=== PATIENT | female | born 1975 | race Caucasian/White ===

== ENCOUNTER 2016-12-31 08:53 | Inpatient (IN) ==
--- NOTE | 2016-12-31 09:39 | Emergency Department Note ---
Kaushik Chahal Hilary, am scribing for, and in the presence of, Jaime Gayle MD 09: 36. Nalini Chahal James D, MD, personally performed the services described in this documentation, ascribed by Molly Faulkner in my presence, and it is both accurate and complete 938 . Arrival - Arrival Chief Complaint: Abdominal / Flank Pain Stated Complaint: pressure,swollen abd ED Nursing Triage Note: c/o abd swelling over the last 6 month but worse in the last few weeks. Mode of Arrival: Ambulatory Limitations: No Limitations Source: Patient, RN Notes Reviewed Time Seen by Provider: 12/31/16 09:21 - History of Present Illness HPI Narrative: Pt is a 41 y/o white female presenting to the ED with c/o abdominal swelling which onset a few months ago. Pt states that her abdomen has been swelling for the past few months and it has gradually gotten worse. Pt confirms SOB, intermittent dark urine, a BM yesterday and worsening pressure but denies pain upon touching. No other complaints or problems stated in the ED. Onset (ago): month(s) Consistency: constant Severity: moderate Severity scale (1-10): 2 Quality: other (pressure) Date of Last Menstrual Period: 4 days ago Allergies/Adverse Reactions: Allergies Allergy/AdvReac Type Severity Reaction Status Date / Time Penicillins Allergy ANAPHYLAXIS Verified 08/23/16 13:11 Home Medications: Home Medications Medication Instructions Recorded Confirmed Type Ciprofloxacin Tab [Cipro Tab] 500 mg PO Q12HR #20 tablet 08/23/16 Rx Clorazepate [Tranxene] 7.5 mg PO DAILY 08/23/16 08/23/16 History predniSONE TAB [PredniSONE] 20 mg PO DAILY #15 tablet 08/23/16 Rx Review of System - Review of System 12 point system: reviewed and no additional remarkable complaints except as stated - Review of System Constitutional: Absent: fever Respiratory: Present: respiratory distress (SOB) Gastrointestinal: Present: abdominal pain (abdominal pressure and swelling ). Absent: constipation Genitourinary female: Present: other (intermittent dark urine) Medical,Surgical,& Family Hx - Medical History Psychological: History of: Anxiety Disorders - Social History Smoking Status: Current every day smoker Frequency of Alcohol Use: None Type of Drug Use: None Exam Physical Examination: GENERAL: This is a well-nourished, well-developed female in no apparent distress. VITAL SIGNS: Temperature: 97.9 Pulse: 118 Respiratory: 18 Blood Pressure: 159 /100 O2Sat: 99 HEENT: Head is normocephalic and atraumatic. Pupils are equally round and reactive to light. Extraocular movement are intact. Oropharynx is benign with moist mucous membranes. NECK: Neck is soft and supple without tenderness. There are no masses. There is no lymphadenopathy. LUNGS: Lungs are clear to auscultation bilaterally. Chest rises symmetrically. There is no chest wall tenderness. CV: Heart is regular rate and rhythm without murmurs, rubs, or gallops. ABDOMEN: Abdomen is distended and taut, non-tender to palpation. There are no abnormal masses palpated. There is no organomegaly. Bowel sounds are hypoactive. SKIN: Skin is warm and dry. No rash. EXTREMITIES: Patient has full range of motion without tenderness. There is no pedal edema. NEUROLOGIC: Awake, alert, and oriented x4. Cranial nerves II through XII are grossly intact. There are no motorsensory deficits. PSYCHIATRIC: Normal affect. Normal mood. Vital Signs: Vital Signs Temperature 97.9 F 12/31/16 08:55 Pulse Rate 96 H 12/31/16 11:15 Respiratory Rate 18 12/31/16 11:15 Blood Pressure 137/95 12/31/16 11:15 O2 Sat by Pulse Oximetry 99 12/31/16 08:55 Results - Labs CBC & BMP: 12/31/16 09:43 12/31/16 09:43 Lab Results: I have reviewed the patients labs Labs: Laboratory Tests 12/31/16 12/31/16 12/31/16 09:43 09:43 09:43 WBC 8.0 RBC 4.59 Hgb 14.5 Hct 44.2 Plt Count 242 MPV 9.3 L INR 1.0 PT Patient/Control Mix 10.7 Circ Anticoag PTT 28.6 Urine pH 6.0 Ur Specific [place] 1.015 Urine Blood Large Urine Nitrate Positive H Urine Urobilinogen < 2.0 H Urine RBC 1 Urine WBC 4 Laboratory Tests 12/31/16 09:43 Sodium 138 Potassium 3.8 Chloride 103 Carbon Dioxide 29 Calculated Osmolality 272.7 L AST 57 H ALT 72 H Globulin 3.9 H Albumin/Globulin Ratio 0.8 L Laboratory Tests 12/31/16 12/31/16 09:43 11:12 Carcinoembryonic Ag 5.2 H Hepatitis A IgM Ab Negative Hep Bs Antigen Negative Hep B Core IgM Ab Negative Hepatitis C Antibody Positive A - Diagnostic Findings Procedure: CT Abdomen and Pelvis: report reviewed by me (1. Very large abdominal and pelvic cystic mass, with numerous septations and internal solid components. I speculate that this may arise from the left ovary. The GI tract is the second most common origin of these type of cystic masses. Serous cystadeenoma/cystadenocarcinoma or mucinous cystadenoma or cystadenocarcinoma or ovarian dermoid are the most likely considerations. 2. 13mm hypodense solid mass within the left lobe of the liver, nonspecific. 3. Hiatal hernia), Ultrasound: report reviewed by me (Abdominal ultrasound: Complex, probable ovarian lesion. No other evidence of abnormality demonstrated) Disposition Clinical Impression: Ovarian mass Case discussed with: patient Disposition: Still a Patient Condition: Stable Time of Disposition: 11:18
[2016-12-31 09:57] LABS: Basophils % 0.4 % (0.0-0.8); Hematocrit 44.2 VOL% (35.7-47.0); Hemoglobin 14.5 GM/DL (12.0-16.0); Immature Granulocytes % 0.5 %; Immature Granulocytes Absolute 0.04 #; Lymphocytes % 24.6 % (21.3-54.2); Mean Corpuscular HGB Conc 32.8 GM/DL (32-36); Mean Corpuscular Hemoglobin 32 PG (27-34); Mean Corpuscular Volume 96.3 FL (87-102); Mean Platelet Volume 9.3 FL (9.6-12.0); Monocytes # 0.6 10*3/uL (0.11-0.8); Neutrophils # 5.3 10*3/uL (1.4-7.4); Neutrophils % 66.5 % (38.7-73.9); Platelet Count 242 T/CUMM (130-400); Red Blood Count 4.59 MC/CUMM (3.8-5.5)
[2016-12-31 10:05] LABS: Amorphous Crystals,Urine Occasional /HPF (Few); Apearance,Urine Slightly Hazy (Clear); Bacteria,Urine Occasional /HPF (Few); Bilirubin,Urine Negative (Negative); Blood, Urine Large mg/dL (Negative); Glucose,Urine (UA) Negative (Negative); Ketones,Urine Negative (Negative); Mucus,Urine Occasional /LPF (Occasional); Nitrite,Urine Positive (Negative); Protein,Urine Negative; RBC,Urine 1 /HPF (0-4); Squamous Epithelial Cell,Urine Occasional /HPF (0-10); Urine Color Yellow (Yellow); Urine Specific Gravity 1.015 (1.001-1.035); Urine Urobilinogen < 2.0 EU/DL (0.2-1.0); WBC,Urine 4 /HPF (0-6)
[2016-12-31 10:09] LABS: PT Patient Result 10.7 SECS; Partial Thromboplastin Time 28.6 SECS (0-40)
[2016-12-31 10:30] LABS: Albumin 3.5 G/DL (3.4-5.0); Bilirubin,Total 0.6 MG/DL (0.2-1.0); Osmolality,Calculated 272.7 MOS/KG (273-304); Potassium 3.8 MMOL/L (3.5-5.1); Total Protein 7.4 G/DL (6.4-8.3)
--- NOTE | 2016-12-31 10:38 | Ultrasound Report ---
Abdominal ultrasound Indication: Abdominal distention Findings: Complex ascites is present with septations and areas of increased echogenicity. The liver is normal in size and echogenicity. The gallbladder is fluid-filled without evidence of stones or sludge. The gallbladder wall thickness is 1.8 millimeters. The common bile duct measures 5.6 millimeters. The visualized portion of the pancreas appear within normal limits The kidneys normal in size and echogenicity without hydronephrosis or other abnormality. The right renal length is 11.0 centimeters. Left renal length is 11.4 centimeters. Spleen appears within normal limits. Aorta and IVC not clearly identified. Impression: Complex ascites. No other evidence of abnormality demonstrated. Ultrasound images stored and captured. PROCEDURE INTERPRETED AT [facility] DEPARTMENT OF RADIOLOGY Final Report Signed by: Dr. Vladislav Alvares
--- NOTE | 2016-12-31 11:06 | CT Report ---
CT of the abdomen and pelvis with intravenous contrast. No oral contrast was administered. 100 cc Omni 350. Indication: Abdominal mass. The patient reports no previous surgeries. The heart is normal in size. There is no pericardial or pleural effusion. There is a 4 cm hiatal hernia present. The lung bases are clear. There is a largest cystic mass filling the abdominal and pelvic cavity. It measures 33.6 cm craniocaudal, 33.9 cm transverse, and 27.3 cm AP. It contains numerous septations, with varying densities of fluid. At its upper aspect, there is a vague soft tissue mass seen within it measuring 8.5 cm. Along the lower aspects, there is a predominantly cystic mass measuring 13 cm in a predominantly solid mass containing calcification measuring 9 cm. Multiple additional nodular foci along the septations are also seen. The liver is normal in size. There is a 13 mm nonspecific hypodense solid mass within the left lobe. There is mass effect on the liver and the other organs. There is no ascites. There is no splenic enlargement. There is no adrenal enlargement. No renal abnormality is seen. The abdominal aorta is of normal caliber. The uterus is prominent in size and lobular. Possible normal sized right ovary visualized. Left ovary not definitely accounted for. There is mass effect on the bowel, no bowel wall thickening or evidence of obstruction. There is cellulitis noted along the lower abdominal pannus. Osseous structures are unremarkable. Impression: 1. Very large abdominal and pelvic cystic mass, with numerous septations and internal solid components. I speculate that this may arise from the left ovary. The GI tract is the second most common origin of these type of cystic masses. Serous cystadenoma/cystadenocarcinoma or mucinous cystadenoma or cystadenocarcinoma or ovarian dermoid are the most likely considerations. 2. 13 mm hypodense solid mass within the left lobe of the liver, nonspecific. 3. Hiatal hernia. The CT exam was performed using one or more of the following dose reduction techniques: Automated exposure control, adjustment of the mA and/or kV according to patient size, or use of iterative reconstruction technique. PROCEDURE INTERPRETED AT [facility] DEPARTMENT OF RADIOLOGY Final Report Signed by: Dr. Karyn Church
[2016-12-31 11:20] LABS: Hepatitis A Ab IgM Quant 0.11 Index; Hepatitis A Ab IgM Result Negative (Negative); Hepatitis B Core IgM Quant 0.12 Index; Hepatitis B Core IgM Result Negative (Negative); Hepatitis B Surface Ag Quant 0.55 Index; Hepatitis B Surface Ag Result Negative (Negative); Hepatitis C Virus Ab Quant > 11.00 Index; Hepatitis C Virus Ab Result Positive (Negative)
[2016-12-31] MEDS ORDERED: BISACODYL 10 MG SUPP RECTAL PRN (12:40)
[2016-12-31] MEDS ORDERED: ONDANSETRON 4 MG/2 ML VIAL IV PRN ×2 (12:40)
[2016-12-31] MEDS ORDERED: MAGNESIUM HYDROXIDE SUSP 30 ML UDCUP PO PRN (12:40)
[2016-12-31] MEDS ORDERED: ACETAMINOPHEN 325 MG TABLET PO PRN (12:40)
[2016-12-31] MEDS ORDERED: IBUPROFEN 800 MG TABLET PO PRN (12:40)
[2016-12-31] MEDS ORDERED: ONDANSETRON 4 MG/2 ML VIAL ONE (12:46)
[2016-12-31] MEDS: HYDROmorphone 2 MG/1 ML VIAL IV PRN ×3 (12:52→21:11)
[2016-12-31] MEDS ORDERED: SODIUM CHLORIDE 0.9% 250 ML IV PRN (13:56)
[2016-12-31 16:44] LABS: Apearance,Urine CLEAR (Clear); Bilirubin,Urine Negative (Negative); Blood, Urine Large mg/dL (Negative); Glucose,Urine (UA) Negative (Negative); Ketones,Urine Negative (Negative); Nitrite,Urine Positive (Negative); Protein,Urine Negative; RBC,Urine 21 /HPF (0-4); Squamous Epithelial Cell,Urine Occasional /HPF (0-10); Urine Color Yellow (Yellow); Urine Specific Gravity > 1.060 (1.001-1.035); Urine Urobilinogen < 2.0 EU/DL (0.2-1.0); WBC,Urine 7 /HPF (0-6)
--- NOTE | 2016-12-31 19:20 | OB/GYN History & Physical ---
History of Present Illness Chief complaint: Pelvic mass History of present illness: Ms. Ring is a 41 year old female Multiparous patient who presents to the emergency room with an increasing abdominal mass. This patient states that she is first noticed it almost 1 year ago, however because of lack of insurance she did not follow-up with a physician to be evaluated. Cycles have began to be irregular over the last 4-6 months. Cycles became heavy and also very erratic. Patient states that she had no significant pain but she had increasing pressure inside the abdomen. Patient denies any blood in her stool, or blood in her urine. She also noticed increasing shortness of breath only when she is lying supine. Upon arrival to the emergency room CT scan and ultrasound was obtained which demonstrated a 33 cm mass with multiple areas of septation. A CEA and CA 125 has been ordered at this particular time. Will wait for further evaluation before any type of operative procedure have been performed on this patient due to the nature of the possibility of this may be a malignancy. All these findings were discussed with the patient and she is in full agreement with our plan. Have requested a bowel prep, CA 125 a CEA, and also urology consult for the possibility of insertion of ureteral stents. The possibility of being transferred to [place] also was discussed with this patient. Home Medications Medication Instructions Recorded Confirmed Type Clorazepate [Tranxene] 7.5 mg PO DAILY 08/23/16 12/31/16 History Allergies Allergy/AdvReac Type Severity Reaction Status Date / Time Penicillins Allergy ANAPHYLAXIS Verified 08/23/16 13:11 Medical,Surgical,& Family Hx - Medical History Psychological: History of: Anxiety Disorders (HAS TAKEN TRANXENE,BUT STATES NOT NOW), Behavior Problems (HX PANIC ATTACKS) Reproductive: History of: Ovarian Cysts (REMOVAL OF CYSTS BOTH OVARIES) - Family History Family History: Reports;: Family Cancer (MATERNAL GRANDDAD), Additional Family History (DEMENTIA MATERNAL GR MOM) - Social History Smoking Status: Current every day smoker Frequency of Alcohol Use: None Type of Drug 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: 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 - Constitutional Vitals: Vital Signs Temp Pulse Pulse Resp BP BP Pulse Ox 12/31/16 15:39 97.8 F 102 H 20 145/98 12/31/16 12:30 97.7 F 106 H 20 143/92 12/31/16 11:15 96 H 18 137/95 12/31/16 09:45 102 H 133/87 99 12/31/16 08:55 97.9 F 118 H 18 159/100 99 Pulse Ox 12/31/16 15:39 97 12/31/16 12:30 12/31/16 11:15 12/31/16 09:45 12/31/16 08:55 General appearance: mild distress - Head Head exam: Present: normal inspection - Eye Eye exam: Present: EOMI Pupils: Present: BATOOL - ENT ENT exam: Present: normal exam - Neck Neck exam: Present: normal inspection - Respiratory Respiratory exam: Present: clear to auscultation bilaterally - Breast Breasts: as per HPI Menstruation: as per HPI - Cardiovascular Cardiovascular exam: Present: regular rate and rhythm (Huge mass, no rebound or guarding occupying the entire pelvis and up to the diaphragm.) - Back Exam Back exam: Present: normal inspection - Neurological Exam Neurological exam: Present: alert, oriented X3 - Psychiatric Psychiatric exam: Present: normal affect - Skin Skin exam: Present: normal color Assessment and Plan (1) Ovarian mass Status: Acute Assessment and plan: We will await final results of her labs to determine whether or not this is a procedure that should be performed locally or be transferred to university setting. Patient also positive hepatitis screen, with elevated liver enzymes. Current Visit: Yes Results - Labs CBC & BMP: 12/31/16 09:43 12/31/16 09:43
[2016-12-31] MEDS: DOCUSATE SODIUM 100 MG CAPSULE PO SCH (21:12)
[2017-01-01] MEDS: HYDROmorphone 2 MG/1 ML VIAL IV PRN ×3 (02:36→20:50)
[2017-01-01] MEDS: DOCUSATE SODIUM 100 MG CAPSULE PO SCH ×2 (09:17→20:37)
--- NOTE | 2017-01-01 09:58 | Progress Note ---
Assessment and Plan (1) Ovarian mass Status: Acute Assessment and plan: We will await final results of her labs to determine whether or not this is a procedure that should be performed locally or be transferred to university setting. Patient also positive hepatitis screen, with elevated liver enzymes. Current Visit: Yes Family Medicine PN Sub Interval history: Day #1 Subjectively, this patient is feeling much better sleeping back pain and pressure is not as noticeable. She is voiding, and passing gas. Vital signs are stable Labs the CA 125 is pending hopefully today will have a result. Discussed with the patient that if the CA 125 is elevated that this patient will need to be evaluated in [place] by a [employer] oncologist. At this point time total observation wait for final lab results and then will proceed as appropriate. Exam (Progress Note) - Constitutional Vitals: Period Temp Pulse Resp BP Sys/Gauthier Pulse Ox Last 24 Hr 96.9 F-97.8 F 96-106 18-20 125-145/70-98 97-99 Results - Labs CBC & BMP: 12/31/16 09:43 12/31/16 09:43
[2017-01-01] MEDS: oxyCODONE/ACETAMINOPHEN 5-325 MG TABLET PO PRN (10:10)
[2017-01-01] MEDS: LEVOFLOXACIN INJ 500 MG in PREMIX 1 EACH IV SCH (10:24)
[2017-01-01] MEDS: LACTATED RINGERS 1,000 ML IV SCH ×2 (14:00→14:05)
[2017-01-02] MEDS: LACTATED RINGERS 1,000 ML IV SCH ×4 (00:25→14:11)
[2017-01-02] MEDS: HYDROmorphone 2 MG/1 ML VIAL IV PRN ×4 (00:27→15:47)
[2017-01-02] MEDS: oxyCODONE/ACETAMINOPHEN 5-325 MG TABLET PO PRN ×3 (01:45→14:10)
[2017-01-02] MEDS: DOCUSATE SODIUM 100 MG CAPSULE PO SCH (08:09)
[2017-01-02] MEDS: LEVOFLOXACIN INJ 500 MG in PREMIX 1 EACH IV SCH (08:09)
--- NOTE | 2017-01-02 09:11 | Physician Query Form ---
CLICK EDIT DOCUMENT TO SELECT QUERY ANSWER --> OK --> SIGN Leydi Streeter RN, CCDS Certified Clinical Model Home Sales Greeter W) [phone] (f) [phone] [email or web address] PROVIDERS: Make your selection(s) from the choices in EACH section by typing an "x" and enter comments in the comment section. Please use your independent medical judgment in providing your response. This request does not imply that any particular answer is desired or expected. CLINICAL INDICATORS: (Providers should not edit this section) The medical record indicates that the patient was admitted with an ovarian mass , urine CS > 100,000, Urine Nitrate "Positive H' and the patient is on Levofloxacin. Based on the above, could you clarify the appropriate diagnosis, if significant , that supports the above abnormalities and additional evaluation, monitoring, and/or treatment rendered: ( ) patient is not being monitored or treated for UTI ( ) patient is being monitored or treated for UTI ( ) Other, please specify: ( ) Clinically unable to determine COMMENTS: PLEASE ALSO DOCUMENT RESPONSE IN PROGRESS NOTES AND/OR DISCHARGE SUMMARY Use of terms such as suspected, likely, or probable (associated with a specific diagnosis that is being evaluated, monitored, or treated as if it exists) are acceptable and can be restated in the discharge summary if not ruled out. MTDD
--- NOTE | 2017-01-02 11:23 | Progress Note ---
Assessment and Plan (1) Ovarian mass Status: Acute Assessment and plan: We will await final results of her labs to determine whether or not this is a procedure that should be performed locally or be transferred to university setting. Patient also positive hepatitis screen, with elevated liver enzymes. Current Visit: Yes Family Medicine PN Sub Interval history: Third hospital day Ms. Ring is a 41-year-old female who presents with an abdominal mass on 31 December. We have ordered a CA 125 and was notified by our specialty lab services that this lab may be in on the where he may be on the . In light of this patient's continued abdominal pain and discomfort and the possibility of ovarian malignancy have discussed with this patient the need to be transferred to [facility] for #1 relief and #2 the possibility that if it is an ovarian malignancy that the oncology service can take care of this patient appropriately. She is in full agreement with this plan of management and will be transferring this patient should be accepted by Dr. Vicky Mascorro. All appropriate information will be transferred to the [facility]. Exam (Progress Note) - Constitutional Vitals: Period Temp Pulse Resp BP Sys/Gauthier Pulse Ox Last 24 Hr 96.3 F-97.7 F 92-111 14-20 126-161/62-90 92-96 Results - Labs CBC & BMP: 12/31/16 09:43 12/31/16 09:43
--- NOTE | 2017-01-02 11:26 | Discharge Summary ---
Hospital Course - Hospital Course Hospital Course: 41-year-old female with very mass. This patient has increasing abdominal girth over the last year. Patient did not seek medical attention because lack of medical insurance. Her symptoms have become progressively worse with irregular vaginal bleeding and also increasing abdominal pressure. She denied any shortness of breath only when lying supine. CT scan of the pelvis demonstrated a large septated mass possibly arising from the ovary. No abdominal ascites were noted. This patient also has a history of hepatitis C, and also noted was elevated liver enzymes as well. We will send appropriate information and forward with the patient. Diagnosis - Discharge Diagnosis (1) Ovarian mass Status: Acute Discharge Plan - Discharge Data Disposition: Disch/Xfer-[facility]ps[facility]ort Term Hos Condition at Discharge: Stable Discharge Diet: other Activity: increase activity as tolerated Hygiene: no restrictions Weight Bearing at Discharge: weight bear as tolerated Driving: not until seen by doctor Contact your physician if you experience:: fever over 101, Shortness of breath, Bleeding - Discharge Medications No Action Clorazepate [Tranxene] 7.5 mg PO DAILY - Follow Up or Referral - Forms/Instructions Additional Discharge Instructions: Transferred to [facility] for further care Exam - Constitutional Vitals: Period Temp Pulse Resp BP Sys/Gauthier Pulse Ox Last 24 Hr 96.3 F-97.7 F 92-111 14-20 126-161/62-90 92-96 Discharge Results Procedures and tests throughout hospitalization: Pending Orders 12/31/16 Urine Culture Routine Urine Culture Routine 12/31/16 11:12 Cancer Antigen 125 Stat 12/31/16 14:04 Red Blood Cells Leuko Red Routine Type and Screen Routine Labs on day of discharge: Labs from last 24 hours 12/31/16 14:04 Crossmatch See Detail Preliminary micro results at discharge 12/31/16 Unknown Urine Culture - Preliminary Urine,Voided Gram Negative Rods 12/31/16 Unknown Urine Culture - Preliminary Urine,Voided Gram Negative Rods DS: Provider Date of admission: 12/31/16 11:14 Primary care physician: . No PCP Attending physician on admission: Sarita Lassiter MD Consults: 12/31/16 13:53 Consult to Dietitian [CONS] Routine Reason for Dietitian: Other 01/02/17 08:55 Consult to Case Mgmt/Social Srvs [CONS] Routine Reason for Case Mgmt/Social Srvs: Discharge Planning Consult Comment: assist with transfer to [facility] Discharging clinician: Sarita Lassiter MD
[2017-01-02] MEDS ORDERED: ENOXAPARIN 40 MG/0.4 ML SYRINGE SUBCUT ONE (11:30)
[2017-01-02 12:55] VITALS: BP 135/86
--- NOTE | 2017-01-03 08:49 | Physician Query Form ---
CLICK EDIT DOCUMENT TO SELECT QUERY ANSWER --> OK --> SIGN Leydi Streeter RN, CCDS Certified Clinical Die Repairer Trimmer Dies W) [phone] (f) [phone] [email or web address] PROVIDERS: Make your selection(s) from the choices in EACH section by typing an "x" and enter comments in the comment section. Please use your independent medical judgment in providing your response. This request does not imply that any particular answer is desired or expected. CLINICAL INDICATORS: (Providers should not edit this section) The medical record indicates that the patient was admitted with an ovarian mass , urine CS > 100,000, Urine Nitrate "Positive H' and the patient is on Levofloxacin. Based on the above, could you clarify the appropriate diagnosis, if significant , that supports the above abnormalities and additional evaluation, monitoring, and/or treatment rendered: ( ) patient is not being monitored or treated for UTI ( ) patient is being monitored or treated for UTI ( ) Other, please specify: ( ) Clinically unable to determine COMMENTS: PLEASE ALSO DOCUMENT RESPONSE IN PROGRESS NOTES AND/OR DISCHARGE SUMMARY Use of terms such as suspected, likely, or probable (associated with a specific diagnosis that is being evaluated, monitored, or treated as if it exists) are acceptable and can be restated in the discharge summary if not ruled out. MTDD
--- NOTE | 2017-01-06 07:45 | Physician Query Form ---
CLICK EDIT DOCUMENT TO SELECT QUERY ANSWER --> OK --> SIGN Leydi Streeter RN, CCDS Certified Clinical Clinical Microbiologist W) [phone] (f) [phone] [email or web address] PROVIDERS: Make your selection(s) from the choices in EACH section by typing an "x" and enter comments in the comment section. Please use your independent medical judgment in providing your response. This request does not imply that any particular answer is desired or expected. CLINICAL INDICATORS: (Providers should not edit this section) The medical record indicates that the patient was admitted with an ovarian mass , urine CS > 100,000, Urine Nitrate "Positive H' and the patient is on Levofloxacin. Based on the above, could you clarify the appropriate diagnosis, if significant , that supports the above abnormalities and additional evaluation, monitoring, and/or treatment rendered: ( ) patient is not being monitored or treated for UTI ( ) patient is being monitored or treated for UTI ( ) Other, please specify: ( ) Clinically unable to determine COMMENTS: PLEASE ALSO DOCUMENT RESPONSE IN PROGRESS NOTES AND/OR DISCHARGE SUMMARY Use of terms such as suspected, likely, or probable (associated with a specific diagnosis that is being evaluated, monitored, or treated as if it exists) are acceptable and can be restated in the discharge summary if not ruled out. MTDD
--- NOTE | 2017-01-07 07:10 | Physician Query Form ---
CLICK EDIT DOCUMENT TO SELECT QUERY ANSWER --> OK --> SIGN Leydi Streeter RN, CCDS Certified Clinical Administrative Tech W) [phone] (f) [phone] [email or web address] PROVIDERS: Make your selection(s) from the choices in EACH section by typing an "x" and enter comments in the comment section. Please use your independent medical judgment in providing your response. This request does not imply that any particular answer is desired or expected. CLINICAL INDICATORS: (Providers should not edit this section) The medical record indicates that the patient was admitted with an ovarian mass , urine CS > 100,000, Urine Nitrate "Positive H' and the patient is on Levofloxacin. Based on the above, could you clarify the appropriate diagnosis, if significant , that supports the above abnormalities and additional evaluation, monitoring, and/or treatment rendered: ( ) patient is not being monitored or treated for UTI ( ) patient is being monitored or treated for UTI ( ) Other, please specify: ( ) Clinically unable to determine COMMENTS: PLEASE ALSO DOCUMENT RESPONSE IN PROGRESS NOTES AND/OR DISCHARGE SUMMARY Use of terms such as suspected, likely, or probable (associated with a specific diagnosis that is being evaluated, monitored, or treated as if it exists) are acceptable and can be restated in the discharge summary if not ruled out. MTDD
== END 2017-01-02 16:00 | disposition hospice, home (50) | DRG 761 ==
LOC: N.ED 08:53 → N.EDINP 11:14 → N.OB 12:02 → N.4E 01-01 12:28
PROVIDERS: ADMIT Obstetrics & Gynecology; ATTEND Obstetrics & Gynecology